=== PATIENT | male | born 1985 | race Caucasian/White ===

== ENCOUNTER 2021-04-20 18:53 | Emergency (ER) | payer BC, OTHER ==
[~2021-04-20] VITALS: Ht 180.3 cm; Wt 99.8 kg
[2021-04-21 00:07] VITALS: BP 120/82
== END 2021-04-21 00:05 | disposition home or self-care (01) ==
LOC: ER 18:53 → EDSEX 18:53 → ER 04-21 00:05
DX: S83.8X2A Sprain of other specified parts of left knee, initial encounter (principal); M25.462 Effusion, left knee; E66.9 Obesity, unspecified; Z68.30 Body mass index [BMI] 30.0-30.9, adult; X50.1XXA Overexertion from prolonged static or awkward postures, initial encounter; Y93.89 Activity, other specified; Y92.89 Other specified places as the place of occurrence of the external cause; Y99.8 Other external cause status
CPT/HCPCS: 29505; 73562